=== PATIENT | male | born 1980 | race Caucasian/White ===

== ENCOUNTER 2019-07-24 21:13 | Emergency (ER) | payer SELFPAY ==
[~2019-07-24] VITALS: Ht 185.4 cm; Wt 140.9 kg
[~2019-07-24 21:13] MED LIST: COZAAR 25MG25 MG/TAB PO; MULTIPLE VITAMI1 CAP PO; PERCR 7.5 PO
[2019-07-24 21:19] VITALS: BP 153/97; TEMP 98.3
[2019-07-24 22:51] VITALS: PULSE 81
== END 2019-07-24 23:00 | disposition home or self-care (01) ==
LOC: COL.ER 21:13
DX: S99.921A Unspecified injury of right foot, initial encounter (principal); F17.220 Nicotine dependence, chewing tobacco, uncomplicated; X58.XXXA Exposure to other specified factors, initial encounter; Y99.0 Civilian activity done for income or pay
CPT/HCPCS: L1846